=== PATIENT | male | born 1970 | race Caucasian/White ===

== ENCOUNTER → 2023-04-07 | Outpatient (CLI) | payer OTHER ==
[2023-04-07 11:06] VITALS: BP 143/82
--- NOTE | 2023-04-07 17:24 | Cardiology Stress Test Report ---
Stress Test Report Date of Procedure/Referring: Date of Procedure: Apr 07, 2023 PCP Jazzmine Rodriguez DO Admitting Physician Admitting Physician: Attending Physician: Jazzmine Rodriguez DO Indications: CP Baseline Heart Rate: 82 Baseline Blood Pressure: Blood Pressure Systolic: 143 Blood Pressure Diastolic: 82 Baseline EKG: Baseline EKG: NSR Summary/Conclusion: Summary: In summary, the patient started exercising with a baseline heart rate, blood pressure and EKG mentioned above Patient was able to exercise for a total of 8 minutes on Garth protocol, METs 9.7 Maximum heart rate 167 Maximum blood pressure 186/84 Stress EKG, Minimal nondiagnostic changes Recovery EKG , Return to baseline Conclusion: 1. Good exercise tolerance for a total of 8 minutes on Garth protocol, 9.7 METs, achieving 98 percent of maximum expected heart rate 2. Minimal nondiagnostic EKG changes with exercise returned to baseline during recovery 3. No arrhythmia was noted Copy Copies To 1: JAZZMINE RODRIGUEZ BASHAR J MD Apr 07, 2023 17:24
== END ==
LOC: CARD 09:27
PROVIDERS: ATTEND Pediatrics
DX: R07.89 Other chest pain (principal)
CPT/HCPCS: 93017